=== PATIENT | male | born 1975 | race Caucasian/White ===

== ENCOUNTER 2016-12-13 20:33 | Emergency (ER) | payer OTHER ==
[2016-12-13 20:34] VITALS: BMI 25.4
[2016-12-13 20:42] VITALS: BP 123/75; PULSE 97; RESP 18; TEMP 98.3; O2SAT 98
[2016-12-13] MEDS ORDERED: Bacitracin 500 Units/gm Oint Foilpak UD TOP STA (20:56)
[2016-12-13] MEDS ORDERED: Bacitracin 500 Units/gm Oint Foilpak UD ONE (20:57)
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
== END 2016-12-13 21:59 | disposition home or self-care (01) ==
LOC: C.ER 20:33
DX: S00.81XA Abrasion of other part of head, initial encounter (principal); Y04.0XXA Assault by unarmed brawl or fight, initial encounter; Y92.009 Unspecified place in unspecified non-institutional (private) residence as the place of occurrence of the external cause

== ENCOUNTER 2017-04-28 21:00 | Emergency (ER) | payer OTHER ==
[2017-04-28 21:00] VITALS: BMI 25.4
[2017-04-28 21:33] VITALS: TEMP 98.1
--- NOTE | 2017-04-28 22:16 | C.PDOC ---
History Of Present Illness A 41 y/o M with a Hx of abdominal hernia repair about a year ago, c/o mid epigastric pain for a couple of days. Pain is described as dull, aching, and cramping. Denies fever, chills, nausea, vomiting, chest pain, SOB, constipation , diarrhea, back pain, or any other complaints. Time Seen by Provider: 04/28/17 22:16 Chief Complaint (Nursing): Abdominal Pain History Per: Patient History/Exam Limitations: no limitations Onset/Duration Of Symptoms: Days Current Symptoms Are (Timing): Still Present Severity: Mild Pain Scale Rating Of: 5 Location Of Pain/Discomfort: Epigastric Radiation Of Pain To:: None Quality Of Discomfort: Dull, Aching, Cramping Associated Symptoms: denies: Fever, Chills, Nausea, Vomiting, Chest Pain Exacerbating Factors: None Alleviating Factors: None Recent travel outside of the [place]: No Additional History Per: Patient Past Medical History Reviewed: Historical Data, Nursing Documentation, Vital Signs Vital Signs: Last Vital Signs Temp 98.1 F 04/28/17 21:26 Pulse 81 04/28/17 21:26 Resp 20 04/28/17 21:26 BP 144/84 04/28/17 21: Pulse Ox 98 04/29/17 00:24 - Medical History PMH: Back Problems (herniated disks), Fractures (FX: LEFT HAND), Gastritis, Hypercholesterolemia (NOT ON MED. AT THIS TIME(05/21/16)) Surgical History: Back Surgery (neck, herniated disks), Endoscopy Family History: States: No Known Family Hx - Social History Hx Tobacco Use: No Hx Alcohol Use: Yes Hx Substance Use: No - Immunization History Hx Tetanus Toxoid Vaccination: No (unknown) Hx Influenza Vaccination: Yes Hx Pneumococcal Vaccination: No Review Of Systems Constitutional: Negative for: Fever, Chills Cardiovascular: Negative for: Chest Pain Respiratory: Negative for: Shortness of Breath Gastrointestinal: Positive for: Abdominal Pain (Epigastric). Negative for: Nausea, Vomiting, Diarrhea, Constipation Musculoskeletal: Negative for: Back Pain Physical Exam - Physical Exam Appears: Non-toxic, No Acute Distress Skin: Warm, Dry Head: Normacephalic Neck: Supple Cardiovascular: Rhythm Regular Respiratory: No Rales, No Rhonchi, No Wheezing Gastrointestinal/Abdominal: Bowel Sounds (Good bowel sounds), Soft, No Tenderness Back: No CVA Tenderness Neurological/Psych: Oriented x3, Normal Speech, Normal Cognition Gait: Steady ED Course And Treatment - Laboratory Results Result Diagrams: 04/28/17 22:32 04/28/17 22:32 O2 Sat by Pulse Oximetry: 98 (RA) Pulse Ox Interpretation: Normal Reevaluation Time: 00:22 Reassessment Condition: Improved Disposition Counseled Patient/Family Regarding: Studies Performed, Diagnosis, Need For Followup, Rx Given - Disposition Referrals: Joanie Mueller DO [Doctor Osteopathy] - Ryan Ratliff MD [Staff Provider] - Disposition: HOME/ ROUTINE Disposition Time: 22:16 Condition: FAIR Prescriptions: Ibuprofen [Motrin Tab] 800 mg PO TID #15 tab Tamsulosin [Flomax] 0.4 mg PO DAILY #15 cap Instructions: Renal Colic (ED), Kidney Stones (DC) - Clinical Impression Clinical Impression: Renal colic on left side, Kidney stone on left side - Scribe Statement The provider has reviewed the documentation as recorded by the Scribe Ridge coffey All medical record entries made by the Scribe were at my direction and personally dictated by me. I have reviewed the chart and agree that the record accurately reflects my personal performance of the history, physical exam, medical decision making, and the department course for this patient. I have also personally directed, reviewed, and agree with the discharge instructions and disposition.
[2017-04-28] MEDS ORDERED: Sodium Chloride 0.9% 1,000 ML IV ONE (22:18)
[2017-04-28] MEDS ORDERED: Iodixanol 320 MG/ML 100 ML BOTTLE IV ONE (22:29)
[2017-04-28 22:38] LABS: BASO # 0.1 K/uL (0.0-0.2); BASO % 0.9 % (0.0-2.0); EOS # 0.1 K/uL (0.0-0.7); EOS % 1.5 % (0.0-4.0); HEMATOCRIT 42.7 % (35.0-51.0); LYMPH % 32.3 % (20.0-40.0); MEAN CELL VOLUME 85.1 fL (80.0-94.0); MEAN CORPUSCULAR HEMOGLOBIN 29.1 pg (27.0-31.0); MEAN CORPUSCULAR HGB CONC 34.3 g/dL (33.0-37.0); MEAN PLATELET VOLUME 6.9 fL (7.2-11.7); MONO # 1.1 K/uL (0.0-0.8); MONO % 11.6 % (0.0-10.0); NRBC % 0.1 % (0.0-2.0); RED CELL DISTRIBUTION WIDTH 13.2 % (11.5-14.5); WHITE BLOOD COUNT 9.4 K/uL (4.8-10.8)
[2017-04-28 22:47] LABS: CHLORIDE 95 mmol/L (98-107); POTASSIUM 3.9 mmol/L (3.6-5.2); SODIUM 139 mmol/L (132-148)
[2017-04-28 22:49] LABS: GFR AFRICAN-AMERICAN > 60
[2017-04-28 22:50] LABS: ALB/GLOB RATIO 1.5 (1.0-2.1); ALKALINE PHOSPHATASE 75 U/L (38-126); ALT/SGPT 50 U/L (21-72); AST/SGOT 36 U/L (17-59); BILIRUBIN,TOTAL 0.5 mg/dL (0.2-1.3); BLOOD UREA NITROGEN 14 mg/dL (9-20); CALCIUM 8.7 mg/dl (8.6-10.4); CARBON DIOXIDE 29 mmol/L (22-30); GLUCOSE,RANDOM 92 mg/dL (75-110); TOTAL PROTEIN 7.2 g/dL (6.3-8.3)
[2017-04-28 22:53] LABS: RBC URINE < 1 /hpf (0-3); URINE BILIRUBIN NEGATIVE (NEGATIVE); URINE BLOOD NEGATIVE (NEGATIVE); URINE COLOR Yellow (YELLOW); URINE GLUCOSE (UA) NORMAL (Normal); URINE KETONE NEGATIVE (NEGATIVE); URINE LEUKOCYTE ESTERASE NEG Leu/uL (Negative); URINE PROTEIN NEGATIVE (NEGATIVE); URINE UROBILINOGEN NORMAL mg/dL (0.2-1.0); WBC URINE 4 /hpf (0-5)
--- NOTE | 2017-04-29 00:10 | CT ---
EXAM: CT Abdomen and Pelvis With Intravenous Contrast CLINICAL HISTORY: 41 years old, male; Pain; Abdominal pain; Prior surgery; Surgery type: Hernia repair; Patient HX: 10-08-16; Additional info: Mid epigastric pain, S/P hernia repair TECHNIQUE: Axial computed tomography images of the abdomen and pelvis with intravenous contrast. This CT exam was performed using one or more of the following dose reduction techniques: automated exposure control, adjustment of the mA and/or kV according to patient size, and/or use of iterative reconstruction technique. Coronal and sagittal reformatted images were created and reviewed. CONTRAST: 100 mL of [id number] administered intravenously. COMPARISON: No relevant prior studies available. FINDINGS: Limitations: Motion artifact - mild. Lower thorax: No acute findings. ABDOMEN: Liver: Unremarkable. No mass. Gallbladder and bile ducts: No calcified stones. No ductal dilation. Pancreas: No ductal dilation. No mass. Spleen: No splenomegaly. Adrenals: No mass. Kidneys and ureters: No mass. Moderate pelvocaliectasis of LEFT kidney. 1.1 x 0.9 x 0.9 cm calculus within LEFT proximal ureter. Stomach and bowel: No definite mural thickening. No obstruction. Appendix: Normal caliber. No inflammation. PELVIS: Bladder: Unremarkable. Reproductive: Unremarkable as visualized. ABDOMEN and PELVIS: Intraperitoneal space: No significant fluid collection. No free air. Bones/joints: No acute fracture. Soft tissues: Unremarkable. Vasculature: Unremarkable. No aneurysm. Lymph nodes: No pathologically enlarged lymph nodes. IMPRESSION: 1. LEFT proximal ureteral calculus with moderate hydronephrosis. 2. Incidental/non-acute findings are described above.
[2017-04-29 00:40] VITALS: BP 128/72; PULSE 88; RESP 16; O2SAT 99
== END 2017-04-29 00:38 | disposition home or self-care (01) ==
LOC: C.ER 21:00
DX: N13.2 Hydronephrosis with renal and ureteral calculous obstruction (principal)
CPT/HCPCS: 74177; 80053; 81001; 83690; 85025; 85610; 85730; 96374; 96375; 99285; J1885; J7040; Q9967

== ENCOUNTER 2017-12-27 17:39 | Emergency (ER) | payer SELFPAY ==
[2017-12-27 17:40] VITALS: BMI 25.4
[2017-12-27 17:52] VITALS: BP 124/72; PULSE 95; RESP 16; TEMP 98.2; O2SAT 97
[2017-12-27] MEDS ORDERED: Fluorescein 1 mg Ophthalmic Strip OU ONE (18:17)
[2017-12-27] MEDS ORDERED: Tetracaine 0.5% Ophth 2 ML BOTTLE OU ONE (18:18)
[2017-12-27] MEDS ORDERED: Tetracaine 0.5% Ophth (OR ONLY) ONE (18:33)
[2017-12-27] MEDS ORDERED: Fluorescein 1 mg Ophthalmic Strip ONE (18:41)
[2017-12-27] MEDS ORDERED: Erythromycin 0.5% Ophth Oint 1 APPLIC/3.5 G OS STA (18:52)
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
[2017-12-27] MEDS ORDERED: Erythromycin 0.5% Ophth Oint 1 APPLIC/3.5 G ONE (18:56)
== END 2017-12-27 19:04 | disposition home or self-care (01) ==
LOC: C.ER 17:39
DX: S05.02XA Injury of conjunctiva and corneal abrasion without foreign body, left eye, initial encounter (principal); X58.XXXA Exposure to other specified factors, initial encounter; E78.00 Pure hypercholesterolemia, unspecified